=== PATIENT | female | born 1965 | race African-American/Black ===

== ENCOUNTER 2020-03-02 19:04 | Emergency (ER) | payer BC, SELFPAY ==
[2020-03-02 19:22] VITALS: BP 149/96; PULSE 87; RESP 16; TEMP 37.3; O2SAT 98
--- NOTE | 2020-03-02 19:42 | ED.EAR ---
HPI - Ear Problem General Chief complaint: Ear Stated complaint: Ear Pain Time Seen by Provider: 03/02/20 19:27 Source: patient and RN notes reviewed Mode of arrival: ambulatory Limitations: no limitations History of Present Illness HPI Narrative: Patient presents today complaining of right ear clogging sensation and postnasal drip since yesterday. She also reports some mild dizziness to go along with the symptoms. Denies pain in the ear or drainage. Denies cough, fever, sore throat. She has tried no [id number] interventions prior to arrival. Reports history of environmental/seasonal allergies. MD Complaint: decreased hearing Related Data Allergies Allergy/AdvReac Type Severity Reaction Status Date / Time No Known Allergies Allergy Unverified 02/20/17 08:38 Review of Systems Review of Systems: Narrative: CONSTITUTIONAL: Denies body aches, fever, chills, or sweats. EYES: Denies visual changes, redness, or discharge. ENT: Denies rhinorrhea, congestion, sore throat, or otalgia.+ Right ear clogging sensation, postnasal drip CARDIOVASCULAR: Denies chest pain, palpitations, or edema. RESPIRATORY: Denies cough or dyspnea. GASTROINTESTINAL: Denies abdominal pain, nausea, vomiting, or diarrhea. GENITOURINARY: Denies dysuria or hematuria. SKIN: Denies rash, itching, or wounds. MUSCULOSKELETAL: Denies back pain, joint pain, or myalgia. NEUROLOGIC: Denies headache, numbness, tingling, or weakness.+ Mild dizziness PSYCH: Denies depression or anxiety. [facility] Past Medical History Medical History (Updated 03/02/20 @ 19:46 by Katalina Hooks, [facility]) GERD without esophagitis Hyperlipidemia Hypertension Type 2 diabetes mellitus without complications Surgical History Surgical History (Updated 10/29/19 @ 10:11 by Reva Ochoa NP) History of tubal ligation (~1989) Hx of cholecystectomy (~1995) Hx of hysterectomy, total (~2013) Family History Family History (Updated 01/30/17 @ 13:39 by DOCTOR UNKNOWN) Father Hypertension Family history of diabetes mellitus in first degree relative Diabetes mellitus Mother Hypertension Family history of cardiovascular disease Social History Social History (Updated 10/29/19 @ 10:12 by Reva Ochoa NP) Smoking status: Never smoker Second hand tobacco smoke exposure: No Alcohol intake: never 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 Please see nursing chart for further information. There is no relevant family history pertinent to the presenting complaint Exam Narrative: Exam Narrative: GENERAL: Well-appearing, well-nourished, and in no acute distress. HEAD: Normocephalic, atraumatic. EYES: EOMI. No redness or drainage. Conjunctivae normal. ENT: Mucous membranes pink and moist. Nares clear. No rhinorrhea. +right middle ear effusion without evidence of infection. Left ear normal. Throat normal. Uvula midline. NECK: Normal AROM. Supple. No lymphadenopathy. CHEST: No respiratory distress. Clear to auscultation. HEART: Regular rate and rhythm. No murmur appreciated. Normal peripheral pulses. EXTREMITIES: Normal range of motion. No edema. SKIN: Warm, dry, no rash. Capillary refill normal. Normal skin turgor. NEURO: No focal deficits. Alert and oriented x3. Gait steady. PSYCH: Normal affect. No signs of depression or anxiety. Course Vital Signs Vital signs: Vital Signs Temperature 99.1 F 03/02/20 19:22 Pulse Rate 87 03/02/20 19:22 Respiratory Rate 16 03/02/20 19:22 Blood Pressure 149/96 H 03/02/20 19:22 Pulse Oximetry 98 03/02/20 19:22 Temperature 99.1 F 03/02/20 19:22 Pulse Rate 87 03/02/20 19:22 Respiratory Rate 16 03/02/20 19:22 Blood Pressure 149/96 H 03/02/20 19:22 Pulse Oximetry 98 03/02/20 19:22 Reviewed. Pt has been instructed to fol
== END 2020-03-02 19:50 | disposition home or self-care (01) ==
PROVIDERS: Emergency Provider Nurse Practitioner
DX: H65.191 Other acute nonsuppurative otitis media, right ear (principal); K21.9 Gastro-esophageal reflux disease without esophagitis; E78.5 Hyperlipidemia, unspecified; I10 Essential (primary) hypertension; E11.9 Type 2 diabetes mellitus without complications
CPT/HCPCS: 99211; G0463

== ENCOUNTER → 2021-02-06 09:19 | Outpatient (CLI) | payer BC, SELFPAY ==
--- NOTE | ~2021-02-06 | MM_ITS ---
EXAMINATION: MM screening marcello BI w eric HISTORY: Screening mammogram TECHNIQUE: Craniocaudal and mediolateral oblique 3-D tomosynthesis images were obtained and synthetic 2-D images were generated. CAD analysis was submitted and interpreted. COMPARISON: 03/04/2017, 06/03/2015 bilateral digital screening mammogram examinations BREAST PARENCHYMAL COMPOSITION: There are scattered areas of fibroglandular density. FINDINGS: There is no evidence of suspicious mass, calcification, or architectural distortion to sugg est malignancy in either breast. There has been no suspicious interval change. IMPRESSION: 1. No mammographic evidence of malignancy. 2. Recommend routine screening mammography in one year. BI-RADS Category 1: Negative Reviewed, dictated and finalized at location A.
== END ==
PROVIDERS: PCP Nurse Practitioner Family; Visit Provider Nurse Practitioner Family
DX: Z12.31 Encounter for screening mammogram for malignant neoplasm of breast (principal)
CPT/HCPCS: 77063; 77067

== ENCOUNTER 2021-02-13 08:47 | Emergency (ER) | payer BC, SELFPAY ==
[2021-02-13 08:51] VITALS: BP 145/97; PULSE 90; RESP 18; TEMP 36.8; O2SAT 100
[2021-02-13 09:18] VITALS: BP 116/89; PULSE 84; RESP 18; O2SAT 100
[2021-02-13 10:16] VITALS: BP 122/84; PULSE 78; RESP 18; O2SAT 100
--- NOTE | 2021-02-13 11:13 | ED.GENADULT ---
HPI - General Adult General Chief complaint: Recheck/Abnormal Lab/Rx Stated complaint: high blood pressure Time Seen by Provider: 02/13/21 09:10 Source: patient and family Mode of arrival: ambulatory Limitations: no limitations History of Present Illness HPI narrative: Patient with history of hypertension presents with chief complaint of 2 is elevated blood pressure readings before coming to the emergency department today. Patient states one reading was in the 160s/110s and the other was 140/90s. Patient states she took her blood pressure medication prior to arrival. Patient states on she was started on a new blood pressure medication by her primary care due to elevated readings and she is due for follow-up appointment in approximately 2 weeks. Patient states she had a mild headache but denies any other symptoms such as nausea, vomiting, chest pain, shortness of breath, neurologic deficits, facial drooping. Patient denies any symptoms at this time. Related Data Allergies Allergy/AdvReac Type Severity Reaction Status Date / Time No Known Allergies Allergy Verified 02/13/21 08:52 Review of Systems Review of Systems: CONSTITUTIONAL: Denies fever, chills, or sweats. EYES: Denies visual changes, redness, or discharge. ENT: Denies rhinorrhea, congestion, sore throat, or otalgia. CARDIOVASCULAR: Reports elevated blood pressure reading denies chest pain, palpitations, or edema. RESPIRATORY: Denies cough or dyspnea. GASTROINTESTINAL: Denies abdominal pain, nausea, vomiting, or diarrhea. GENITOURINARY: Denies dysuria or hematuria. SKIN: Denies rash or itching. MUSCULOSKELETAL: Denies back pain, joint pain, or myalgia. NEUROLOGIC: Reports mild headache?resolved denies numbness, dizziness, or weakness. PSYCHIATRIC: Denies anxiety or depression. [facility] Past Medical History Medical History GERD without esophagitis Hyperlipidemia Hypertension Type 2 diabetes mellitus without complications Surgical History Surgical History History of tubal ligation (~1989) Hx of cholecystectomy (~1995) Hx of hysterectomy, total (~2013) Family History Family History Father Hypertension Family history of diabetes mellitus in first degree relative Diabetes mellitus Mother Hypertension Family history of cardiovascular disease Social History Social History (Updated 10/29/19 @ 10:12 by Reva Ochoa NP) Smoking status: Never smoker Second hand tobacco smoke exposure: No Alcohol intake: never 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 HEAD: Normocephalic, atraumatic. EYES: PERRLA and EOMI. ENT: Nares clear, no rhinorrhea or epistaxis. Mucous membranes moist. Oropharynx without tonsillar hypertrophy exudate or other lesions. Bilateral TMs pearly coley nonbulging NECK: Supple. No adenopathy or masses. Range of motion intact. CHEST: Clear to auscultation. No respiratory distress. No wheezes rales or rhonchi HEART: Regular rate and rhythm. No murmur heard. Normal peripheral pulses. EXTREMITIES: Normal range of motion. No edema. SKIN: Warm, dry, no rash. NEURO: No focal deficits. Alert and oriented x3. Speech is clear and appropriate. Strength in upper and lower extremities equal and without deficit. PSYCH: Normal mood and affect. Course Vital Signs Vital signs: Vital Signs Temperature 98.3 F 02/13/21 08:51 Pulse Rate 90 02/13/21 08:51 Respiratory Rate 18 02/13/21 08:51 Blood Pressure 145/97 H 02/13/21 08:51 Pulse Oximetry 100 02/13/21 08:51 Temperature 98.3 F 02/13/21 08:51 Pulse Rate 78 02/13/21 10:16 Respiratory Rate 18 02/13/21 10:16 Blood Pressure 122/84 02/13/21 10:16 Pulse Oximetry 100 02/13/21 10:16
[2021-02-13 11:30] VITALS: BP 115/78; PULSE 70; RESP 19; O2SAT 100
== END 2021-02-13 11:31 | disposition home or self-care (01) ==
PROVIDERS: Emergency Provider Emergency Medicine; PCP Nurse Practitioner Family
DX: I10 Essential (primary) hypertension (principal); K21.9 Gastro-esophageal reflux disease without esophagitis; E78.5 Hyperlipidemia, unspecified; E11.9 Type 2 diabetes mellitus without complications; Z79.84 Long term (current) use of oral hypoglycemic drugs
CPT/HCPCS: 99281

== ENCOUNTER 2021-03-22 01:38 | Day surgery (SDC) | payer BC, SELFPAY ==
[2021-03-11 08:27] VITALS: BMI 34.8
--- NOTE | 2021-03-19 18:53 | WPDANESEPPF ---
Anes - Initial Pre Proc Eval Procedure: Operation Date: 03/22/21 08:30 Proposed Procedures p Screening Colonoscopy - Jace Gatica MD Date/Time: 03/19/21 18:53 Surgeon: Jace Gatica MD Pre Op Diagnosis: neoplasm screening, hx of colon polyps Patient Data Age: 56 Gender: F Height: 1.57 m Weight: 86.4 kg Allergies Allergy/AdvReac Type Severity Reaction Status Date / Time No Known Allergies Allergy Verified 03/22/21 07:44 Home Medications Medication Instructions Recorded Confirmed Type omeprazole 40 mg capsule,delayed 40 mg PO DAILY #90 cap 06/04/20 03/11/21 Rx release atorvastatin 20 mg tablet 20 mg PO DAILY #90 tablet 11/05/20 03/11/21 Rx olmesartan 20 mg tablet 20 mg PO DAILY #14 tablet 01/28/21 03/11/21 Rx amlodipine 5 mg tablet 5 mg PO DAILY #90 tablet 02/10/21 03/11/21 Rx metformin 1,000 mg tablet 1,000 mg PO BID #90 tablet 02/26/21 03/11/21 Rx aspirin [Aspir-81] 81 mg PO DAILY 03/11/21 03/11/21 History Patient hx anesthesia problems: none Family hx anesthesia problems: none Results Review: All pre-operative results and documents have been reviewed as part of the pre-operative evaluation. [facility] Past Medical History Medical History GERD without esophagitis Hyperlipidemia Hypertension Seasonal allergies Type 2 diabetes mellitus without complications Surgical History Surgical History History of tubal ligation (~1989) Hx of cholecystectomy (~1995) Hx of hysterectomy, total (~2013) Family History Family History Father Hypertension Family history of diabetes mellitus in first degree relative Diabetes mellitus Mother Hypertension Family history of cardiovascular disease Social History Social History Smoking status: Never smoker Second hand tobacco smoke exposure: No Alcohol intake: never Substance use: never Substance use type: does not use Living arrangements: alone 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[employer] Gender identity (if verbalized by the patient): Female Spiritual care concerns: No Anes - Eval Final PreProcedure Day of Procedure 03/19/21 18:53 Patient weight: obese Heart: regular rate and rhythm Lungs: clear to auscultation and normal air movement Airway: Mallampati scale class II Neurological: alert and oriented Last oral intake: >/= 8 hours ASA classification: III Emergent: no Anesthetic plan: proceed Anesthesia type and monitoring: general GIVS and standard monitoring Results Review: All pre-operative results and documents have been reviewed as part of the pre-operative evaluation. Informed Consent: The patient's anesthetic plan and its attendant risks and benefits were discussed with the patient/family/POA. Questions were solicited and answers provided to the satisfaction of the patient/family/POA.
[2021-03-22 07:45] VITALS: BP 151/93; PULSE 74; RESP 18; TEMP 37.6; O2SAT 100
[2021-03-22] MEDS: LACTATED RINGERS 1,000 ML 150 ML IV CONT (07:56)
[2021-03-22 08:00] LABS: Glucose Point of Care 128 mg/dl (65-105)
--- NOTE | 2021-03-22 08:13 | PM.HPGS ---
History of Present Illness History of Present Illness Consent: Risks, benefits, and alternatives have been discussed and questions answered. Patient agrees to proceed with procedure. Chief complaint: neoplasm screening, hx of colon polyps Narrative: Jennifer Greene is a 56 year old female with colon polyp 4 years ago. Review of Systems Constitutional: Constitutional: Denies headache(s) and Denies weakness Eyes: Eyes: Denies blurry vision ENT: Reports Normal hearing present, Denies headache(s) and Denies neck pain Cardiovascular: Cardiovascular: Denies chest pain and Denies dyspnea Respiratory: Respiratory: Denies dyspnea Gastrointestinal: Gastrointestinal: Reports no additional gastrointestinal complaints Genitourinary: Genitourinary: Denies dysuria Musculoskeletal: Musculoskeletal: Denies neck pain Integumentary/Breasts: Skin/Breast: Denies dry skin Neurologic: Reports Normal hearing present, Denies headache(s) and Denies weakness Psychiatric: Psychiatric: Denies anxiety Endocrine: Endocrine: Denies change in body appearance Hematologic/Lymphatic: Hematologic/Lymphatic: Denies easy bleeding Allergic/Immunologic: Allergic/Immunologic: Denies urticaria PMFSH Past Medical History Medical History (Updated 03/22/21 @ 08:14 by Jace Gatica MD) Adenomatous colon polyp GERD without esophagitis Hyperlipidemia Hypertension Seasonal allergies Type 2 diabetes mellitus without complications Surgical History Surgical History History of tubal ligation (~1989) Hx of cholecystectomy (~1995) Hx of hysterectomy, total (~2013) Family History Family History Father Hypertension Family history of diabetes mellitus in first degree relative Diabetes mellitus Mother Hypertension Family history of cardiovascular disease Social History Social History Smoking status: Never smoker Second hand tobacco smoke exposure: No Alcohol intake: never Substance use: never Substance use type: does not use Living arrangements: alone 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[employer] Gender identity (if verbalized by the patient): Female Spiritual care concerns: No Meds Home Medications and Allergies Home Medications Medication Instructions Recorded Confirmed Type omeprazole 40 mg capsule,delayed 40 mg PO DAILY #90 cap 06/04/20 03/22/21 Rx release atorvastatin 20 mg tablet 20 mg PO DAILY #90 tablet 11/05/20 03/22/21 Rx olmesartan 20 mg tablet 20 mg PO DAILY #14 tablet 01/28/21 03/22/21 Rx amlodipine 5 mg tablet 5 mg PO DAILY #90 tablet 02/10/21 03/22/21 Rx metformin 1,000 mg tablet 1,000 mg PO BID #90 tablet 02/26/21 03/22/21 Rx aspirin [Aspir-81] 81 mg PO DAILY 03/11/21 03/22/21 History Allergies Allergy/AdvReac Type Severity Reaction Status Date / Time No Known Allergies Allergy Verified 03/22/21 07:44 Vital Signs Vital Signs - 24 hr 03/22/21 07:45 Temperature 99.6 F Pulse Rate 74 Respiratory Rate 18 Blood Pressure 151/93 H Pulse Oximetry 100 Exam Const: General: comfortable and no acute distress HENMT: General nose exam: Normal nares present Eyes: General: appearance normal, both eyes and all related structures Neck: Neck: no JVD Resp: Auscultation: clear to auscultation bilaterally Cardio: Rate: regular rate Rhythm: regular rhythm GI: Inspection: non-distended GI Palp: Yes Soft to palpation Skin: General skin exam: normal color Neuro: General: gait normal Speech: normal speech Extrem: General: normal to inspection Psych: Mental Status: mental status grossly normal Assessment and Plan Assessment and plan (1) Adenomatous colon polyp: Code(s): D12.6 - Benign neoplasm of colon, unspecified Status: Acute Assessment and Plan:
[2021-03-22 08:36] VITALS: BP 124/86; PULSE 77; RESP 17; O2SAT 100
[2021-03-22 08:46] VITALS: BP 127/90; PULSE 71; RESP 17; O2SAT 100
[2021-03-22 08:56] VITALS: BP 131/90; PULSE 67; RESP 17; O2SAT 100
== END 2021-03-22 09:19 | disposition home or self-care (01) ==
PROVIDERS: PCP Nurse Practitioner Family; Visit Provider Internal Medicine Gastroenterology
PROC: 0DJD8ZZ Inspection of Lower Intestinal Tract, Via Natural or Artificial Opening Endoscopic (ICD-10-PCS; CPT 45378; principal; 2021-03-22 08:30)
DX: Z12.11 Encounter for screening for malignant neoplasm of colon (principal); Z86.010 Personal history of colon polyps; K57.30 Diverticulosis of large intestine without perforation or abscess without bleeding; K64.8 Other hemorrhoids; K21.9 Gastro-esophageal reflux disease without esophagitis; I10 Essential (primary) hypertension; E78.5 Hyperlipidemia, unspecified; E11.9 Type 2 diabetes mellitus without complications; Z79.82 Long term (current) use of aspirin; Z79.84 Long term (current) use of oral hypoglycemic drugs; E66.9 Obesity, unspecified; Z68.35 Body mass index [BMI] 35.0-35.9, adult
CPT/HCPCS: 45378; 82948; J2001; J2704; J7120

== ENCOUNTER 2024-08-06 18:20 | Emergency (ER) | payer OTHER, SELFPAY ==
[2024-08-06 18:25] VITALS: BP 125/89; PULSE 93; RESP 12; TEMP 37.2; O2SAT 100
--- NOTE | 2024-08-06 18:35 | ED.EYEPROB ---
HPI - Eye Problem General Chief complaint: Eye Problems Stated complaint: right eye red,watery Time Seen by Provider: 08/06/24 18:35 Source: patient, RN notes reviewed and old records reviewed Mode of arrival: ambulatory Limitations: no limitations History of Present Illness HPI Narrative: 59-year-old female presents to the [facility] with 1 day history of eye redness, conjunctiva redness, itching and tearing. Has some crusting to the lower lid. Denies any visual changes. Patient does wear contacts lenses. But currently wearing glasses Related Data Home Medications ?Medication ?Instructions ?Recorded ?Confirmed ?Last Taken ?Type latanoprost 0.005 % eye drops 1 drp EACH EYE QPM 08/06/24 08/06/24 Unknown History Allergies Allergy/AdvReac Type Severity Reaction Status Date / Time No Known Allergies Allergy Verified 08/06/24 18:26 Review of Systems Review of Systems: All systems reviewed & are unremarkable except as noted in HPI and below Constitutional: Constitutional: Reports no additional constitutional complaints Eyes: Eyes: Reports as per HPI ENT: Reports system reviewed and no additional complaints, except as documented Cardiovascular: Cardiovascular: Reports no additional cardiovascular complaints, Denies chest pain and Denies dyspnea Respiratory: Respiratory: Reports no additional respiratory complaints, Denies chest congestion, Denies cough and Denies dyspnea Musculoskeletal: Musculoskeletal: Reports no additional musculoskeletal complaints Integumentary/Breasts: Skin/Breast: Reports system reviewed and no additional complaints, except as docu PMFSH Past Medical History Medical History Adenomatous colon polyp Seasonal allergies GERD without esophagitis Type 2 diabetes mellitus without complications Hyperlipidemia Hypertension Surgical History Surgical History Hx of cholecystectomy (~1995) History of tubal ligation (~1989) Hx of hysterectomy, total (~2013) Family History Family History Father Hypertension Family history of diabetes mellitus in first degree relative Diabetes mellitus Mother Hypertension Family history of cardiovascular disease Social History Social History Smoking status: Never smoker Second hand tobacco smoke exposure: No Alcohol intake: never Substance use: never Substance use type: does not use Lack of Transportation: No Lack of Food: Never True Current Housing: I Have Housing Concerned About Future Housing: No Difficulty Paying Gas/Electric Bills: No Difficulty Paying for Meds: No Currently Unemployed: No Education: Associate Degree Difficulty w/ Childcare or Family Care: No Living arrangements: alone Occupation/Education: occupation 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 There is no relevant family history pertinent to the patient complaint. Exam Const: General: cooperative, healthy appearing, comfortable, no acute distress, well developed, alert and well nourished Nutritional Appearance: well nourished Orientation/consciousness: patient oriented x3 Limitations: no limitations HENMT: Head: normal to inspection Ears: hearing grossly normal bilaterally, external ears normal, TM's normal bilaterally, EAC's normal, mastoids normal and no periauricular adenopathy Mouth: Yes Normal oral and palatal mucosa present, Yes lip normal, Yes tongue normal and Yes moist mucous membranes Throat: posterior oropharynx normal, uvula midline and no uvular edema Eyes: General: appearance normal, both eyes and all related structures Visual Pearl: normal visual pearl by confrontation Alignment and Position: alignment normal Eyelids: eyelid abnormality right lower eyelid lid margins crusty/scaly; without inflamed cyst, ectropion, without entropion, without erythema, with no swelling and nontender Conjunctivae: conjunctival abnormality right conjunctival injection localized EOM: EOMs intact bilaterally Neck: Neck: normal visual inspection, full ROM, no lymphadenopathy and no meningeal signs Chest: Chest palpation & inspection: normal inspection of the chest Resp: Effort & Inspection: normal respiratory effort and able to speak in complete sentences Auscultation: clear to auscultation bilaterally, no crackles, no rales, no rhonchi and no wheezes Cardio: Rate: regular rate Skin: General skin exam: normal color and no rashes or lesions noted Neuro: General: patient oriented x3, gait normal, moves all extremities and no meningeal signs Cognition (Neuro): normal cognition Speech: normal speech Gait exam (Neuro): Normal gait present Extrem: General: normal to inspection, full ROM, capillary refill normal and normal gait Psych: Appearance: grossly normal and well kempt Mental Status: mental status grossly normal Speech and movement: Normal speech and movement present and Clear speech present Affect: normal affect Attitude: cooperative Course Course Level of Care: Express Care Visit Vital Signs Vital signs: Vital Signs Temperature 99 F 08/06/24 18:25 Pulse Rate 93 08/06/24 18:25 Respiratory Rate 12 08/06/24 18:25 Blood Pressure 125/89 08/06/24 18:25 Pulse Oximetry 100 08/06/24 18:25 Temperature 99 F 08/06/24 18:25 Pulse Rate 93 08/06/24 18:25 Respiratory Rate 12 08/06/24 18:25 Blood Pressure 125/89 08/06/24 18:25 Pulse Oximetry 100 08/06/24 18:25 Reviewed MDM - Eye Problem MDM Narrative Medical decision making narrative: Patient sitting comfortably in exam room. Nontoxic, vitals stable. Patient in no acute distress. Patient presents with right eye tearing, itching. Patient's exam consistent with conjunctivitis Patient is appropriate for outpatient treatment and follow-up Discharge instructions reviewed with patient, as well as provided in writing per nursing staff. The instructions also include specific and strict return/GO TO THE ER as well as f/u information. All questions have been answered, and the patient deny any further questions with discharge and discharge plan. Some parts of this dictation were generated by voice recognition software and may contain typographical and/or grammatical inaccuracies. Differential Diagnosis Differential diagnosis: Likely conjunctivitis and periorbital cellulitis Critical Care Time Critical Care Time Critical Care Time: No Discharge Plan Discharge Clinical Impression: Acute conjunctivitis, right eye Qualifiers: Acute conjunctivitis type: unspecified Qualified Code(s): H10.31 - Unspecified acute conjunctivitis, right eye Patient Disposition: Home, Self-Care Condition: Stable Instructions: Antibiotic Form, Conjunctivitis (ED) Additional Instructions: Apply a cool, damp compress to your affected eye. Be sure to use a clean cloth each time to avoid spreading the infection. Gently clean your eyes with wet cotton balls or pads to remove crusty buildup or irritating discharge. Stop wearing contact lenses until the condition clears up. Use prescription eye drops as prescribed Maintain good hygiene and only touch your eyes with freshly washed hands. You should follow-up with an eye doctor within the next 72 hours Madelaine: Steve [phone] [place]- [phone] [place]- [phone] Emilie: [place]- [phone] or [phone]- [phone] [facility] [phone] [facility] [phone] [facility]- [phone] Patient Language: Indonesian Prescriptions: New ciprofloxacin HCl 0.3 % drops See Rx Instructions EACH EYE .COMPLEX Qty: 2.5 0RF Rx Instructions: put 1-2 drps in affected eye(s) every 2hr up to 8 times/day x2days; then 4 times/day x5days No Action latanoprost 0.005 % drops 1 drp EACH EYE QPM (DME) OneTouch Ultra Test Strip See Rx Instructions .Route Qty: 100 1RF Rx Instructions: As directed (DME) blood-glucose meter [Blood Glucose Monitoring] Kit See Rx Instructions .Route Qty: 1 0RF Rx Instructions: Check fasting blood sugar daily and as needed (DME) lancets [BD Ultra Fine Lancets] 33 gauge misc See Rx Instructions .Route Qty: 100 1RF Rx Instructions: As directed amlodipine 5 mg tablet 5 mg PO DAILY Qty: 90 1RF aspirin 81 mg tablet,delayed release (DR/EC) 81 mg PO DAILY Qty: 90 0RF metformin 1,000 mg tablet 1,000 mg PO BID Qty: 180 1RF olmesartan [Benicar] 20 mg tablet 20 mg PO DAILY Qty: 90 1RF omeprazole 40 mg capsule,delayed release(DR/EC) 40 mg PO DAILY Qty: 90 1RF Januvia 50 mg tablet 50 mg PO DAILY Qty: 90 1RF atorvastatin [Lipitor] 40 mg tablet 40 mg PO QHS Qty: 90 1RF cholecalciferol (vitamin D3) 1,250 mcg (50,000 unit) tablet 1,250 mcg PO WEEKLY Qty: 12 1RF Follow-up/Referrals: Petr Sotelo MD [Primary Care Provider] - 2 Weeks ([facility] follow-up) Stand Alone Forms: Work/School Release IP Time of Disposition: 18:53
--- NOTE | 2024-08-06 18:46 | ED.EYEPROB ---
HPI - Eye Problem General Chief complaint: Eye Problems Stated complaint: right eye red,watery Time Seen by Provider: 08/06/24 18:35 Source: patient, RN notes reviewed and old records reviewed Mode of arrival: ambulatory Limitations: no limitations Related Data Home Medications ?Medication ?Instructions ?Recorded ?Confirmed ?Last Taken ?Type latanoprost 0.005 % eye drops 1 drp EACH EYE QPM 08/06/24 08/06/24 Unknown History Allergies Allergy/AdvReac Type Severity Reaction Status Date / Time No Known Allergies Allergy Verified 08/06/24 18:26 [facility] Past Medical History Medical History Adenomatous colon polyp GERD without esophagitis Hyperlipidemia Hypertension Seasonal allergies Type 2 diabetes mellitus without complications Surgical History Surgical History History of tubal ligation (~1989) Hx of cholecystectomy (~1995) Hx of hysterectomy, total (~2013) Family History Family History Father Hypertension Family history of diabetes mellitus in first degree relative Diabetes mellitus Mother Hypertension Family history of cardiovascular disease Social History Social History Smoking status: Never smoker Second hand tobacco smoke exposure: No Alcohol intake: never Substance use: never Substance use type: does not use Lack of Transportation: No Lack of Food: Never True Current Housing: I Have Housing Concerned About Future Housing: No Difficulty Paying Gas/Electric Bills: No Difficulty Paying for Meds: No Currently Unemployed: No Education: Associate Degree Difficulty w/ Childcare or Family Care: No Living arrangements: alone Occupation/Education: occupation 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[employer] Gender identity (if verbalized by the patient): Female Spiritual care concerns: No Agree to blood products: Yes Course Vital Signs Vital signs: Vital Signs Temperature 99 F 08/06/24 18:25 Pulse Rate 93 08/06/24 18:25 Respiratory Rate 12 08/06/24 18:25 Blood Pressure 125/89 08/06/24 18:25 Pulse Oximetry 100 08/06/24 18:25 Temperature 99 F 08/06/24 18:25 Pulse Rate 93 08/06/24 18:25 Respiratory Rate 12 08/06/24 18:25 Blood Pressure 125/89 08/06/24 18:25 Pulse Oximetry 100 08/06/24 18:25 Discharge Plan Discharge Clinical Impression: Acute conjunctivitis, right eye Patient Disposition: Home, Self-Care Condition: Stable Instructions: Antibiotic Form, Conjunctivitis (ED) Additional Instructions: Apply a cool, damp compress to your affected eye. Be sure to use a clean cloth each time to avoid spreading the infection. Gently clean your eyes with wet cotton balls or pads to remove crusty buildup or irritating discharge. Stop wearing contact lenses until the condition clears up. Use prescription eye drops as prescribed Maintain good hygiene and only touch your eyes with freshly washed hands. You should follow-up with an eye doctor within the next 72 hours [facility]: [facility] [phone] [place] [phone] [facility] [phone] [place]: [facility] [phone] or [phone] [facility] [phone] [place] [phone] [facility] [phone] [facility]- [phone] Patient Language: Malay Prescriptions: New ciprofloxacin HCl 0.3 % drops See Rx Instructions EACH EYE .COMPLEX Qty: 2.5 0RF Rx Instructions: put 1-2 drps in affected eye(s) every 2hr up to 8 times/day x2days; then 4 times/day x5days No Action latanoprost 0.005 % drops 1 drp EACH EYE QPM (DME) OneTouch Ultra Test Strip See Rx Instructions .Route Qty: 100 1RF Rx Instructions: As directed (DME) blood-glucose meter [Blood Glucose Monitoring] Kit See Rx Instructions .Route Qty: 1 0RF Rx Instructions: Check fasting blood sugar daily and as needed (DME) lancets [BD Ultra Fine Lancets] 33 gauge misc See Rx Instructions .Route Qty: 100 1RF Rx Instructions: As directed amlodipine 5 mg tablet 5 mg PO DAILY Qty: 90 1RF aspirin 81 mg tablet,delayed release (DR/EC) 81 mg PO DAILY Qty: 90 0RF metformin 1,000 mg tablet 1,000 mg PO BID Qty: 180 1RF olmesartan [Benicar] 20 mg tablet 20 mg PO DAILY Qty: 90 1RF omeprazole 40 mg capsule,delayed release(DR/EC) 40 mg PO DAILY Qty: 90 1RF Januvia 50 mg tablet 50 mg PO DAILY Qty: 90 1RF atorvastatin [Lipitor] 40 mg tablet 40 mg PO QHS Qty: 90 1RF cholecalciferol (vitamin D3) 1,250 mcg (50,000 unit) tablet 1,250 mcg PO WEEKLY Qty: 12 1RF Follow-up/Referrals: Petr Sotelo MD [Primary Care Provider] - 2 Weeks ([facility] follow-up)
== END 2024-08-06 18:57 | disposition home or self-care (01) ==
PROVIDERS: Emergency Provider Nurse Practitioner; PCP Family Medicine
DX: H10.31 Unspecified acute conjunctivitis, right eye (principal); K21.9 Gastro-esophageal reflux disease without esophagitis; E11.9 Type 2 diabetes mellitus without complications; E78.5 Hyperlipidemia, unspecified; I10 Essential (primary) hypertension
CPT/HCPCS: 99213; G0463